=== PATIENT | male | born 1985 | race Caucasian/White ===

== ENCOUNTER → 2021-01-17 15:49 | Outpatient (CLI) | payer BC, OTHER, SELFPAY ==
--- NOTE | ~2021-01-17 | MR_ITS ---
EXAMINATION: MR knee RT wo con DATE: 01/17/2021 17:20 INDICATION: Right knee pain. TECHNIQUE: Magnetic resonance imaging (MRI) of the right knee was performed without intravenous contr ast. Sequences included axial PD-weighted FS FSE, coronal PD-weighted FSE and PD-weighted FS FSE, sag ittal PD-weighted FSE, and sagittal T2-weighted FS FSE. COMPARISON: Right knee radiographs 09/11/2013 FINDINGS: Sensitivity and specificity are mildly decreased by motion artifact. Medial compartment: Medial meniscus is normal. There is cartilage surface irregularity of tibial condyle and femoral cond yle. Lateral compartment: Lateral meniscus is normal. Lateral compartment cartilage is normal. Patellofemoral compartment: There is cartilage surface irregularity of patellar lateral facet. Trochlear cartilage is normal. Ligaments and tendons: The anterior and posterior cruciate ligaments are normal. Medial collateral ligament and lateral brown ateral ligament complex are intact. There is mild patellar tendinopathy. Fluid: There is no knee joint effusion. There is a small Sorto's cyst. IMPRESSION: 1. 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 2. Small Sorto's cyst. Reviewed, dictated and finalized at location B.
== END ==
PROVIDERS: Visit Provider Orthopaedic Surgery
DX: M71.21 Synovial cyst of popliteal space [Baker], right knee (principal)
CPT/HCPCS: 73721

== ENCOUNTER 2021-04-16 12:50 | Emergency (ER) | payer OTHER, SELFPAY ==
[2021-04-16 14:00] VITALS: BP 135/82; PULSE 78; RESP 16; TEMP 36.6; O2SAT 98
--- NOTE | 2021-04-16 14:20 | ED.SKABFB ---
HPI - Skin/Abscess/Foreign Bdy General Source: patient Mode of arrival: ambulatory Limitations: no limitations History of Present Illness HPI narrative: Patient comes in with an itchy very fine red to both antecubital areas. This has been ongoing for two days. itching has winston severe. He has had no relief from topical over the counter hydrocortisone. No other associated signs or symptoms. complaint: rash Onset (ago): day(s) Tetanus up to date: yes Severity: severe Quality: pruritic Relieving factors: none Exacerbating factors: movement Associated symptoms: denies other symptoms Treatments prior to arrival: OTC topical medication Related Data Allergies Allergy/AdvReac Type Severity Reaction Status Date / Time levofloxacin Allergy Unknown Verified 01/10/16 14:59 Review of Systems Constitutional: Constitutional: Reports no additional constitutional complaints Eyes: Eyes: Reports no additional eye complaints ENT: Reports system reviewed and no additional complaints, except as documented Cardiovascular: Cardiovascular: Reports no additional cardiovascular complaints Respiratory: Respiratory: Reports no additional respiratory complaints Gastrointestinal: Gastrointestinal: Reports no additional gastrointestinal complaints Genitourinary: Genitourinary: Reports no additional male genitourinary complaints Musculoskeletal: Musculoskeletal: Reports no additional musculoskeletal complaints Integumentary/Breasts: Skin/Breast: Reports system reviewed and no additional complaints, except as docu Neurologic: Reports system reviewed and no additional complaints, except as documented Psychiatric: Psychiatric: Reports no additional psychiatric complaints Endocrine: Endocrine: Reports no additional endocrine complaints Hematologic/Lymphatic: Hematologic/Lymphatic: Reports no additional hematologic/lymphatic complaints Allergic/Immunologic: Allergic/Immunologic: Reports no additional allergic/immunologic complaints [facility] Past Medical History Medical History No significant medical problems Surgical History Surgical History (Updated 04/16/21 @ 18:02 by Jeremías Priest MD) No significant past surgical history Family History Family History (Updated 04/16/21 @ 18:02 by Jeremías Priest MD) Mother Colon cancer Other Hypertension Social History Social History Smoking status: Former smoker Smoking end date: 09/30/12 Alcohol intake: never Substance use: never Living arrangements: with family Gender identity (if verbalized by the patient): Male Sexual Orientation (if Verbalized by the Patient): Straight or Heterosexual Course Vital Signs Vital signs: Vital Signs Temperature 36.6 C 04/16/21 14:00 Pulse Rate 78 04/16/21 14:00 Respiratory Rate 16 04/16/21 14:00 Blood Pressure 135/82 04/16/21 14:00 Pulse Oximetry 98 04/16/21 14:00 Temperature 36.6 C 04/16/21 14:00 Pulse Rate 71 04/16/21 14:34 Respiratory Rate 14 04/16/21 14:34 Blood Pressure 135/82 04/16/21 14:00 Pulse Oximetry 98 04/16/21 14:34 Discharge Plan Discharge Clinical Impression: Contact dermatitis Qualifiers: Contact dermatitis type: allergic Contact dermatitis trigger: unspecified trigger Qualified Code(s): L23.9 - Allergic contact dermatitis, unspecified cause Patient Disposition: Home, Self-Care Condition: Stable Instructions: Antibiotic Form, Contact Dermatitis (ED) Additional Instructions: Use benadryl 25 to 50 mg every 6 hours to help itching, as tolerated. Follow up with family doctor as needed Prescriptions: New triamcinolone acetonide 0.1 % ointment 1 applic topical BID Qty: 15 RF: 1 Follow-up/Referrals: Donavan,MD Romeo [Primary Care Provider] - Time of Disposition: 14:
[2021-04-16 14:34] VITALS: PULSE 71; RESP 14; O2SAT 98
[2021-04-16] MEDS: DEXAMETHASONE 4 MG TABLET 12 MG PO (14:35)
== END 2021-04-16 14:39 | disposition home or self-care (01) ==
PROVIDERS: Emergency Provider Emergency Medicine; PCP Internal Medicine
DX: L23.9 Allergic contact dermatitis, unspecified cause (principal)
CPT/HCPCS: 99283; J8540

== ENCOUNTER 2021-04-30 17:36 | Emergency (ER) | payer OTHER, SELFPAY ==
[2021-04-30 17:40] VITALS: BP 135/88; PULSE 97; RESP 14; TEMP 36.8; O2SAT 97
--- NOTE | 2021-04-30 17:46 | ED.SKABFB ---
HPI - Skin/Abscess/Foreign Bdy General Chief complaint: Skin/Abscess/Foreign Body Stated complaint: Rash on arms and stomach Source: patient and RN notes reviewed Mode of arrival: ambulatory Limitations: no limitations History of Present Illness complaint: rash Onset (ago): day(s) (2) Location: LUE and RUE Severity: mild Quality: burning and pruritic Pain Consistency: constant Relieving factors: none Exacerbating factors: none Context: other ( possible poison gayathri) Associated symptoms: denies other symptoms Treatments prior to arrival: corticosteroid Related Data Allergies Allergy/AdvReac Type Severity Reaction Status Date / Time levofloxacin Allergy Unknown Verified 01/10/16 14:59 Review of Systems Review of Systems: All systems reviewed & are unremarkable except as noted in HPI and below PMFSH Past Medical History Medical History No significant medical problems Surgical History Surgical History No significant past surgical history Family History Family History Mother Colon cancer Other Hypertension Social History Social History Smoking status: Former smoker Smoking end date: 09/30/12 Alcohol intake: never Substance use: never Gender identity (if verbalized by the patient): Male Exam Const: General: healthy appearing and no acute distress Nutritional Appearance: well nourished Orientation/consciousness: patient oriented x3 HENMT: Head: normal to inspection Ears: external ears normal Eyes: Conjunctivae: conjunctivae normal Pupils: Equal, round and reactive pupils present EOM: EOMs intact bilaterally Neck: Neck: normal visual inspection Resp: Effort & Inspection: normal respiratory effort Auscultation: clear to auscultation bilaterally Cardio: Rate: regular rate Rhythm: regular rhythm GI: Auscultation: normal bowel sounds Back/Spine/Pelvis: Cervical Spine: cervical ROM normal Thoracic/Lumbar Spine: thoraco-lumbar ROM normal Skin: Rashes: rashes noted (and left lower abd) bilateral forearm arrangement linear, color red and morphology linear Neuro: General: patient oriented x3, moves all extremities, no meningeal signs and no focal motor deficits Speech: normal speech Gait exam (Neuro): Normal gait present Extrem: General: normal to inspection and no clubbing, cyanosis or edema Psych: Appearance: grossly normal and well kempt Mental Status: mental status grossly normal Affect: normal affect Attitude: cooperative Thought content: Yes Normal thought content present Course Course Emergency Course: I explained the patient normal progression for poison gayathri. I will prescribe a stronger steroid cream but noted that oral steroids or injection of steroids are not indicated at this time. Vital Signs Vital signs: Vital Signs Temperature 36.8 C 04/30/21 17:40 Pulse Rate 97 04/30/21 17:40 Respiratory Rate 14 04/30/21 17:40 Blood Pressure 135/88 04/30/21 17:40 Pulse Oximetry 97 04/30/21 17:40 Temperature 36.8 C 04/30/21 17:40 Pulse Rate 97 04/30/21 17:40 Respiratory Rate 14 04/30/21 18:08 Blood Pressure 135/88 04/30/21 17:40 Pulse Oximetry 97 04/30/21 18:08 Discharge Plan Discharge Clinical Impression: Contact dermatitis Qualifiers: Contact dermatitis type: allergic Contact dermatitis trigger: non-food plants Qualified Code(s): L23.7 - Allergic contact dermatitis due to plants, except food Patient Disposition: Home, Self-Care Condition: Stable Instructions: Contact Dermatitis (ED) Prescriptions: New desoximetasone [Topicort] 0.25 % cream 1 applic topical BID 10 Days Qty: 60 RF: 0 Follow-up/Referrals: Donavan,MD Romeo [Primary Care Provider] - Time of Disposition: 18:03
[2021-04-30 18:08] VITALS: RESP 14; O2SAT 97
== END 2021-04-30 18:08 | disposition home or self-care (01) ==
PROVIDERS: Emergency Provider Emergency Medicine; PCP Internal Medicine
DX: L23.7 Allergic contact dermatitis due to plants, except food (principal)
CPT/HCPCS: 99283

== ENCOUNTER 2021-10-27 18:27 | Emergency (ER) | payer OTHER, SELFPAY ==
--- NOTE | 2021-10-27 18:44 | ED.GENADULT ---
HPI - General Adult General Chief complaint: Unspecified Stated complaint: nose bleed Time Seen by Provider: 10/27/21 18:44 Source: patient History of Present Illness HPI narrative: 36-year-old male with no significant past medical history presented to the ER with -- right nostril epistaxis. Bleeding started 30 minutes ago. patient felt sinus discomfort following which he blew his nose which started off his epistaxis. No prior episodes of epistaxis. No history of bleeding tendency. He has had dental extraction without any undue bleeding post procedure. No family history of bleeding disorders. MD complaint: 30 minutes ago Onset (ago): minute(s) Relieving factors: none Exacerbating factors: none Associated symptoms: denies other symptoms Related Data Home Medications Medication Instructions Recorded Confirmed No Home Medications 10/27/21 10/27/21 Allergies Allergy/AdvReac Type Severity Reaction Status Date / Time levofloxacin Allergy Unknown Verified 01/10/16 14:59 Review of Systems Review of Systems: All systems reviewed & are unremarkable except as noted in HPI and below Constitutional: Constitutional: Reports as per HPI and Reports no additional constitutional complaints Eyes: Eyes: Reports as per HPI and Reports no additional eye complaints ENT: Reports system reviewed and no additional complaints, except as documented Comments: right nostril epistaxis. No sinus tenderness. No mucopurulent discharge. Cardiovascular: Cardiovascular: Reports as per HPI and Reports no additional cardiovascular complaints Respiratory: Respiratory: Reports as per HPI and Reports no additional respiratory complaints Gastrointestinal: Gastrointestinal: Reports as per HPI and Reports no additional gastrointestinal complaints Genitourinary: Genitourinary: Reports no additional male genitourinary complaints and Reports as per HPI Musculoskeletal: Musculoskeletal: Reports no additional musculoskeletal complaints and Reports as per HPI Integumentary/Breasts: Skin/Breast: Reports system reviewed and no additional complaints, except as docu and Reports as per HPI Neurologic: Reports system reviewed and no additional complaints, except as documented and Reports as per HPI Psychiatric: Psychiatric: Reports no additional psychiatric complaints and Reports as per HPI Endocrine: Endocrine: Reports no additional endocrine complaints and Reports as per HPI Hematologic/Lymphatic: Hematologic/Lymphatic: Reports no additional hematologic/lymphatic complaints and Reports as per HPI Allergic/Immunologic: Allergic/Immunologic: Reports no additional allergic/immunologic complaints PMFSH Past Medical History Medical History No significant medical problems Surgical History Surgical History No significant past surgical history Family History Family History Mother Colon cancer Other Hypertension Social History Social History Smoking status: Former smoker Smoking end date: 09/30/12 Alcohol intake: never Substance use: never Gender identity (if verbalized by the patient): Male Sexual Orientation (if Verbalized by the Patient): Straight or Heterosexual Exam Const: General: cooperative, healthy appearing and comfortable HENMT: Head: normal to inspection Ears: hearing grossly normal bilaterally and external ears normal General nose exam: Normal external nose present Face and sinus: other ( Dried bloodright nostril. Questionable spot in the right septum- possibl) Mouth: Yes Normal oral and palatal mucosa present and Yes lip normal Throat: posterior oropharynx normal and tonsils normal Eyes: General: appearance normal, both eyes and all related structures Visual Valera: normal visual fie
[2021-10-27 18:47] VITALS: BP 134/70; PULSE 74; RESP 20; TEMP 37; O2SAT 99
[2021-10-27] MEDS: OXYMETAZOLINE HCL 0.05% NAS 15 ML BTL (*BKC) 1 SPRAY (18:51)
[2021-10-27 19:15] LABS: Basophils Absolute Auto 0.08 K/mm3 (0.00-0.10); Basophils Percent Auto 0.9 % (0.0-1.0); Eosinophils Absolute Auto 0.22 K/mm3 (0.02-0.50); Eosinophils Percent Auto 2.5 % (1.0-6.0); Hematocrit 40.3 % (40.0-54.0); Hemoglobin 13.7 g/dL (14.0-18.0); Immature Granulocyte Absolute 0.03 K/mm3 (0.00-0.00); Immature Granulocyte Percent A 0.3 % (0.0-0.0); Lymphocytes Absolute Auto 3.42 K/mm3 (1.10-4.50); Lymphocytes Percent Auto 39.5 % (18.0-42.0); Mean Corpuscular Hemoglobin 31.1 pg (27.0-31.0); Mean Corpuscular Volume 91.6 fL (78.0-102.0); Mean Platelet Volume 9.1 fl (8.7-11.0); Monocytes Absolute Auto 0.75 K/mm3 (0.10-0.90); Monocytes Percent Auto 8.7 % (2.0-11.0); Neutrophils Absolute Auto 4.2 K/mm3 (1.7-7.2); Neutrophils Percent Auto 48.1 % (50.0-70.0); Platelet Count Result 255 K/mm3 (150-420); Red Cell Distribution Width 11.8 % (11.6-14.4); White Blood Count 8.7 K/mm3 (4.8-10.8)
[2021-10-27 19:30] LABS: Partial Thromboplastin Time 30.4 SEC (23.90-30.70); Prothrombin Time 10.3 Seconds (9.50-12.10)
[2021-10-27 19:33] LABS: Alanine Aminotransferase 67 U/L (16-63); Albumin Level 4.1 g/dL (3.4-5.0); Alkaline Phosphatase 82 U/L (46-116); Anion Gap 9 mmol/L (8-16); Aspartate Amino Transferase 23 U/L (15-37); Bilirubin,Total 0.5 mg/dL (0.00-1.00); Blood Urea Nitrogen 16 mg/dL (7-18); Calcium 8.9 mg/dL (8.5-10.1); Carbon Dioxide 28 mmol/L (21-32); Chloride 101 mmol/L (98-108); Estimated CRCL calculation 91 ml/min; Estimated Glomerular Filt Rate > 60; Glucose 96 mg/dL (70-99); Osmolality Calculated 287 mOsm/kg (285-295); Potassium 3.8 mmol/L (3.5-5.1); Sodium 138 mmol/L (136-145); Total Protein 7.1 g/dL (6.4-8.2)
--- NOTE | 2021-10-27 19:47 | ED.GENADULT ---
HPI - General Adult General Chief complaint: Unspecified Stated complaint: nose bleed Time Seen by Provider: 10/27/21 18:44 Source: patient History of Present Illness Relieving factors: none Exacerbating factors: none Associated symptoms: denies other symptoms Related Data Home Medications Medication Instructions Recorded Confirmed No Home Medications 10/27/21 10/27/21 Allergies Allergy/AdvReac Type Severity Reaction Status Date / Time levofloxacin Allergy Unknown Verified 01/10/16 14:59 PMF Past Medical History Medical History No significant medical problems Surgical History Surgical History No significant past surgical history Family History Family History Mother Colon cancer Other Hypertension Social History Social History Smoking status: Former smoker Smoking end date: 09/30/12 Alcohol intake: never Substance use: never Gender identity (if verbalized by the patient): Male Sexual Orientation (if Verbalized by the Patient): Straight or Heterosexual Course Vital Signs Vital signs: Vital Signs Temperature 37.0 C 10/27/21 18:47 Pulse Rate 74 10/27/21 18:47 Respiratory Rate 20 10/27/21 18:47 Blood Pressure 134/70 10/27/21 18:47 Pulse Oximetry 99 10/27/21 18:47 Temperature 37.0 C 10/27/21 18:47 Pulse Rate 74 10/27/21 18:47 Respiratory Rate 20 10/27/21 18:47 Blood Pressure 134/70 10/27/21 18:47 Pulse Oximetry 99 10/27/21 18:47 Medical Decision Making MDM Narrative Medical decision making narrative: Epistaxis Differential Diagnosis Differential Diagnosis: sinusitis. Nasal polyps. Vital Signs Vital Signs: Vital Signs Temperature 37.0 C 10/27/21 18:47 Pulse Rate 74 10/27/21 18:47 Respiratory Rate 20 10/27/21 18:47 Blood Pressure 134/70 10/27/21 18:47 Pulse Oximetry 99 10/27/21 18:47 Temperature 37.0 C 10/27/21 18:47 Pulse Rate 74 10/27/21 18:47 Respiratory Rate 20 10/27/21 18:47 Blood Pressure 134/70 10/27/21 18:47 Pulse Oximetry 99 10/27/21 18:47 Lab Data Result diagrams: 10/27/21 19:07 10/27/21 19:07 Labs: Lab Results 10/27/21 10/27/21 10/27/21 Range/Units 19:07 19:07 19:07 WBC 8.7 (4.8-10.8) K/mm3 RBC 4.40 L (4.70-6.10) M/mm3 Hgb 13.7 L (14.0-18.0) g/dL Hct 40.3 (40.0-54.0) % MCV 91.6 (78.0-102.0) fL MCH 31.1 H (27.0-31.0) pg MCHC 34.0 (32.0-36.0) g/dL RDW 11.8 (11.6-14.4) % Plt Count 255 (150-420) K/mm3 MPV 9.1 (8.7-11.0) fl Immature Gran % (Auto) 0.3 H (0.0-0.0) % Neut % (Auto) 48.1 L (50.0-70.0) % Lymph % (Auto) 39.5 (18.0-42.0) % [place] % (Auto) 8.7 (2.0-11.0) % Eos % (Auto) 2.5 (1.0-6.0) % Baso % (Auto) 0.9 (0.0-1.0) % Lymph # (Auto) 3.42 (1.10-4.50) K/mm3 [place] # (Auto) 0.75 (0.10-0.90) K/mm3 Eos # (Auto) 0.22 (0.02-0.50) K/mm3 Baso # (Auto) 0.08 (0.00-0.10) K/mm3 Abs Immat Gran (auto) 0.03 H (0.00-0.00) K/mm3 Absolute Neuts (auto) 4.2 (1.7-7.2) K/mm3 Absolute Nucleated RBC 0.00 (0.00-0.00) K/mm3 Nucleated RBC % 0.0 (0-0.0) % PT 10.3 (9.50-12.10) Seconds INR 1.0 APTT 30.4 (23.90-30.70) SEC Sodium (136-145) mmol/L Potassium (3.5-5.1) mmol/L Chloride (98-108) mmol/L Carbon Dioxide (21-32) mmol/L Anion Gap (8-16) mmol/L BUN (7-18) mg/dL Creatinine (0.70-1.30) mg/dL Estim Creat Clear Calc ml/min Estimated GFR (59 - ) Glucose (70-99) mg/dL Calculated Osmolality (285-295) mOsm/kg Calcium (8.5-10.1) mg/dL Total Bilirubin (0.00-1.00) mg/dL AST (15-37) U/L ALT (16-63) U/L Alkaline Phosphatase (46-116) U/L Total Protein
[2021-10-27 20:18] VITALS: BP 120/70; PULSE 70; RESP 18; TEMP 36.6; O2SAT 99
== END 2021-10-27 20:19 | disposition home or self-care (01) ==
PROVIDERS: Emergency Provider Internal Medicine Critical Care Medicine; PCP Internal Medicine
DX: R04.0 Epistaxis (principal)
CPT/HCPCS: 36415; 80053; 85025; 85610; 85730; 99282; 99283; A9270

== ENCOUNTER 2022-08-26 08:07 | Emergency (ER) | payer SELFPAY ==
[2022-08-26 08:14] VITALS: BP 115/62; PULSE 98; RESP 16; TEMP 37.7; O2SAT 95
[2022-08-26 08:37] LABS: Add Urine Microscopic? NO; Appearance Urine Clear (Clear); Bilirubin Urine Negative (Negative); Blood Urine Negative (Negative); Color Urine Yellow (Yellow); Glucose Urine UA Negative (Negative); Ketones Urine Negative (Negative); Leukocyte Esterase Ur Negative LEU/UL (Negative); Nitrate Urine Negative (Negative); Protein Urine Negative (Negative); Specific Grav Ur >= 1.030 (1.010-1.020); Urobilinogen Urine 0.2 mg/dL (0.2-1.0)
--- NOTE | 2022-08-26 08:39 | ED.URI ---
HPI - URI/Sore Throat General Chief Complaint: Upper Respiratory Infection Stated Complaint: fever, body aches, kidney pain Time Seen by Provider: 08/26/22 08:30 Source: patient and RN notes reviewed Mode of arrival: ambulatory Limitations: no limitations History of Present Illness MD elicited complaint: fever and cough Onset (ago): day(s) (1) Consistency: constant Severity: moderate Description of mucous: clear Able to tolerate fluids by mouth: Yes Exacerbating factors: nothing Relieving factors: nothing Context: sick contacts Associated symptoms: chills, myalgias, headache and other ( also complains of right flank pain.) Treatments prior to arrival: none Related Data Allergies Allergy/AdvReac Type Severity Reaction Status Date / Time levofloxacin Allergy Unknown itch Verified 08/26/22 08:20 Review of Systems Review of Systems: All systems reviewed & are unremarkable except as noted in HPI and below PMFSH Past Medical History Medical History Angiolipoma No significant medical problems Surgical History Surgical History (Updated 08/26/22 @ 08:45 by Jeremías Francisco MD) History of appendectomy Family History Family History Mother Colon cancer Other Hypertension Social History Social History Smoking status: Former smoker Smoking end date: 09/30/12 Alcohol intake: never Substance use: never Gender identity (if verbalized by the patient): Male Sexual Orientation (if Verbalized by the Patient): Straight or Heterosexual Exam Const: General: no acute distress, alert and ill appearing acutely Nutritional Appearance: well nourished and obese Orientation/consciousness: patient oriented x3 Limitations: no limitations HENMT: Head: normal to inspection Ears: external ears normal Eyes: Conjunctivae: conjunctivae normal Pupils: Equal, round and reactive pupils present EOM: EOMs intact bilaterally Neck: Neck: normal visual inspection Resp: Effort & Inspection: normal respiratory effort Auscultation: clear to auscultation bilaterally Cardio: Rate: regular rate Rhythm: regular rhythm GI: GI Palp: Yes Soft to palpation and No Tenderness to palpation present (GI) Auscultation: normal bowel sounds Back/Spine/Pelvis: Back: CVA tenderness (mild right) Cervical Spine: cervical ROM normal Thoracic/Lumbar Spine: thoraco-lumbar ROM normal Skin: General skin exam: normal color Rashes: no rashes Wounds: no wounds Neuro: General: patient oriented x3 Speech: normal speech Gait exam (Neuro): Normal gait present Course Vital Signs Vital signs: Vital Signs Temperature 37.7 C H 08/26/22 08:14 Pulse Rate 98 08/26/22 08:14 Respiratory Rate 16 08/26/22 08:14 Blood Pressure 115/62 08/26/22 08:14 Pulse Oximetry 95 08/26/22 08:14 Oxygen Delivery Room Air 08/26/22 08:14 Temperature 37.7 C H 08/26/22 09:24 Pulse Rate 88 08/26/22 09:24 Respiratory Rate 17 08/26/22 09:24 Blood Pressure 116/62 08/26/22 09:24 Pulse Oximetry 98 08/26/22 09:24 Oxygen Delivery Room Air 08/26/22 09:24 MDM - URI/Sore Throat Lab Data Attestation: I reviewed the patient's lab results. Labs: Lab Results 08/26/22 08/26/22 Range/Units 08:23 08:24 Urine Color Yellow (Yellow) Urine Appearance Clear (Clear) Urine pH 6.0 (5.0-8.0) Ur Specific [place] >= 1.030 H (1.010-1.020) Urine Protein Negative (Negative) Urine Glucose (UA) Negative (Negative) Urine Ketones Negative (Negative) Ur Blood (Man) Negative (Negative) Urine Nitrate Negative (Negative) Urine Bilirubin Negative (Negative) Urine Urobilinogen 0.2 (0.2-1.0) mg/dL Leukocyte Esterase Rfl Negative (Negative) MARIN/UL Influenza A (RT-PCR) Positive (Negative) Influenza B (RT-PCR) Negative (Negative)
[2022-08-26 09:10] LABS: Influenza A QL RT-PCR Positive (Negative); Influenza B QL RT-PCR Negative (Negative); SARS-CoV-2 RNA PCR Negative (Negative)
[2022-08-26 09:19] LABS: RSV RNA, RT-PCR Negative (Negative)
[2022-08-26 09:24] VITALS: BP 116/62; PULSE 88; RESP 17; TEMP 37.7; O2SAT 98
== END 2022-08-26 09:41 | disposition home or self-care (01) ==
PROVIDERS: Emergency Provider Emergency Medicine
DX: J11.1 Influenza due to unidentified influenza virus with other respiratory manifestations (principal); Z20.822 Contact with and (suspected) exposure to COVID-19; Z87.891 Personal history of nicotine dependence
CPT/HCPCS: 81003; 87637; 99283

== ENCOUNTER 2023-01-04 03:24 | Emergency (ER) | payer SELFPAY ==
[2023-01-04 03:27] VITALS: BP 126/78; PULSE 95; RESP 18; TEMP 36.7; O2SAT 97
[2023-01-04 04:13] LABS: Strep Group A RT-PCR DETECTED (Negative)
[2023-01-04 04:19] LABS: Influenza A QL RT-PCR Negative (Negative); Influenza B QL RT-PCR Negative (Negative); RSV RNA, RT-PCR Negative (Negative); SARS-CoV-2 RNA PCR Negative (Negative)
--- NOTE | 2023-01-04 04:31 | ED.FEVER ---
HPI - Fever General Chief Complaint: Fever Stated Complaint: fever Time Seen by Provider: 01/04/23 03:35 Source: patient Mode of arrival: ambulatory Limitations: no limitations History of Present Illness HPI Narrative: This is a 37-year-old female that presents with a 1 day history of sore throat with a tender left submandibular gland with some low-grade fever and chills with no shortness of breath no nasal discharge no nausea vomiting no abdominal pain. MD elicited complaint: fever Related Data Allergies Allergy/AdvReac Type Severity Reaction Status Date / Time levofloxacin Allergy Unknown itch Verified 01/04/23 03:33 Review of Systems Review of Systems: All systems reviewed & are unremarkable except as noted in HPI and below PMFSH Past Medical History Medical History Angiolipoma No significant medical problems Surgical History Surgical History History of appendectomy Family History Family History Mother Colon cancer Other Hypertension Social History Social History Smoking status: Former smoker Smoking end date: 09/30/12 Alcohol intake: never Substance use: never Living arrangements: with family Gender identity (if verbalized by the patient): Male Sexual Orientation (if Verbalized by the Patient): Straight or Heterosexual Exam Const: General: healthy appearing Nutritional Appearance: well nourished Orientation/consciousness: patient oriented x3 Limitations: no limitations HENMT: Head: normal to inspection Face and sinus: normal facial exam Mouth: Yes Normal oral and palatal mucosa present Eyes: Conjunctivae: conjunctivae normal Neck: Neck: lymphadenopathy Chest: Chest palpation & inspection: normal inspection of the chest Resp: Effort & Inspection: normal respiratory effort Auscultation: clear to auscultation bilaterally Cardio: Rate: regular rate Rhythm: regular rhythm GI: GI Palp: Yes Soft to palpation Skin: General skin exam: normal color Rashes: no rashes Wounds: no wounds Neuro: General: patient oriented x3 Psych: Appearance: grossly normal Mental Status: mental status grossly normal Course OPERATOR MAINTAINER/PA Physician Supervision Patient diagnosed with strep, currently afebrile and will give him a dose of amoxicillin and sent a prescription antibiotics to his local pharmacy. Vital Signs Vital signs: Vital Signs Temperature 36.7 C 01/04/23 03:27 Pulse Rate 95 01/04/23 03:27 Respiratory Rate 18 01/04/23 03:27 Blood Pressure 126/78 01/04/23 03:27 Pulse Oximetry 97 01/04/23 03:27 Oxygen Delivery Room Air 01/04/23 03:27 Temperature 36.7 C 01/04/23 03:27 Pulse Rate 95 01/04/23 03:27 Respiratory Rate 18 01/04/23 03:27 Blood Pressure 126/78 01/04/23 03:27 Pulse Oximetry 97 01/04/23 03:27 Oxygen Delivery Room Air 01/04/23 03:27 MDM - Fever Lab Data Labs: Lab Results 01/04/23 01/04/23 Range/Units 03:37 03:37 Influenza A (RT-PCR) Negative (Negative) Influenza B (RT-PCR) Negative (Negative) RSV (RT-PCR) Negative (Negative) SARS-CoV-2 RNA (RT-PCR) Negative (Negative) Group A Strep (PCR) Detected A (Negative) Critical Care Time Critical Care Time Critical Care Time: No Discharge Plan Discharge Clinical Impression: Strep sore throat Patient Disposition: Home, Self-Care Condition: Stable Instructions: Antibiotic Form, Strep Throat (ED) Additional Instructions: take medicine as prescribed and follow-up with primary care physician if symptoms persist or worsen. Can use Tylenol or Motrin for sore throat symptoms and fever. Prescriptions: New amoxicillin-pot clavulanate [Augmentin] 500-125 mg tablet 1 tablet PO TID Qty: 20 0RF Follow-up/R
[2023-01-04] MEDS: AMOXICILLIN 500 MG CAPSULE PO (04:35)
[2023-01-04 04:44] VITALS: BP 122/75; PULSE 72; RESP 18; TEMP 36.4; O2SAT 97
== END 2023-01-04 04:45 | disposition home or self-care (01) ==
PROVIDERS: Emergency Provider Emergency Medicine; PCP Internal Medicine
DX: J02.0 Streptococcal pharyngitis (principal); Z87.891 Personal history of nicotine dependence; Z20.822 Contact with and (suspected) exposure to COVID-19
CPT/HCPCS: 87637; 87651; 99283; A9270

== ENCOUNTER 2024-06-29 14:02 | Outpatient (CLI) | payer BC, SELFPAY ==
--- NOTE | ~2024-06-29 | XR_ITS ---
Cervical Spine: AP, lateral, open-mouth views Clinical History: Pain Findings: There is mild reversal of the normal cervical lordosis. There is 2 mm retrolisthesis of C3 over C4. There is mild degenerative change at C3-C4 and C5-C6. There is facet arthropathy at C3-C4.. Pre-vertebral soft tissues are unremarkable. Impression: Mild degenerative spondylosis overall, as detailed above. Mild reversal of the normal cervical lordosis, with 2 mm retrolisthesis of C3 over C4. Reviewed, dictated and finalized at [facility]. Impression: Mild degenerative spondylosis overall, as detailed above. Mild reversal of the normal cervical lordosis, with 2 mm retrolisthesis of C3 o ramirez C4.
[2024-06-29 14:39] LABS: Add Urine Microscopic? NO; Appearance Urine Clear (Clear); Bilirubin Urine Negative (Negative); Blood Urine Negative (Negative); Color Urine Light Yellow (Yellow); Glucose Urine UA Negative (Negative); Ketones Urine Negative (Negative); Leukocyte Esterase Ur Negative (Negative); Nitrate Urine Negative (Negative); Protein Urine Negative (Negative); Urobilinogen Urine 0.2 mg/dL (0.2-1.0)
[2024-06-29 15:09] LABS: Alanine Aminotransferase 58 U/L (16-63); Albumin Level 4.1 g/dL (3.4-5.0); Alkaline Phosphatase 84 U/L (46-116); Anion Gap 7 mmol/L (4-12); Aspartate Amino Transferase 27 U/L (15-37); Bilirubin,Total 0.5 mg/dL (0.00-1.00); Blood Urea Nitrogen 8 mg/dL (7-18); CRP < 0.5 mg/dL (0.0-0.9); Carbon Dioxide 29 mmol/L (21-32); Chloride 102 mmol/L (98-108); Estimated Glomerular Filt Rate > 60; Free T3 3.38 pg/mL (2.18-3.98); Free T4 Free Thyroxine 0.69 ng/dL (0.76-1.46); Glucose 80 mg/dL (70-99); Osmolality Calculated 283 mOsm/kg (285-295); Sodium 138 mmol/L (136-145); Thyroid Stimulating Hormone 2.03 uIU/mL (0.36-3.74); Total Protein 7.1 g/dL (6.4-8.2)
[2024-06-29 17:46] LABS: Hematocrit 44.5 % (40.0-54.0); Hemoglobin 14.9 g/dL (14.0-18.0); Mean Corpuscular HGB Conc 33.5 g/dL (32-36); Mean Corpuscular Hemoglobin 31.2 pg (27.0-31.0); Mean Corpuscular Volume 93.3 fL (78.0-102.0); Mean Platelet Volume 10.1 fl (8.7-11.0); Platelet Count Result 296 K/mm3 (150-420); Red Blood Count 4.77 M/mm3 (4.70-6.10); Red Cell Distribution Width 12.3 % (11.6-14.4)
[2024-06-30 15:04] LABS: Anti Cyclic Citrullinated Pept <16 UNITS
[2024-07-03 03:28] LABS: Myeloperoxidase Ab <1.0 AI (<1.0); Proteinase-3 Ab <1.0 AI (<1.0)
[2024-07-03 03:43] LABS: Tissue Transglutaminase IgA Ab <1.0 U/mL; Tissue Transglutaminase IgG Ab <1.0 U/mL
[2024-07-03 21:23] LABS: S cerevisiae Ab (IgA) 18.2 U (<=20.0); S cerevisiae Ab (IgG) 13.1 U (<=20.0)
[2024-07-07 20:53] LABS: ANCA Screen Negative (Negative)
== END 2024-06-29 14:03 | disposition home or self-care (01) ==
PROVIDERS: PCP Internal Medicine; Visit Provider Internal Medicine
DX: R42 Dizziness and giddiness (principal); R20.0 Anesthesia of skin; M25.50 Pain in unspecified joint; R19.7 Diarrhea, unspecified; M43.02 Spondylolysis, cervical region; M53.82 Other specified dorsopathies, cervical region
CPT/HCPCS: 36415; 72040; 80053; 81003; 83516; 84439; 84443; 84481; 85027; 86036; 86140; 86200; 86671

== ENCOUNTER 2024-07-11 06:52 | Outpatient (CLI) | payer BC, SELFPAY ==
--- NOTE | ~2024-07-11 | MR_ITS ---
EXAMINATION: MR cervical spine wo con DATE: 07/11/2024 07:35 INDICATION: Cervical radiculopathy. Bilateral hand tingling. TECHNIQUE: Magnetic resonance imaging (MRI) of the cervical spine was performed without intravenous c ontrast. Sequences included sagittal T2-weighted FSE, sagittal T2-weighted FS FSE, sagittal T1-weight ed FSE, axial MERGE, and axial T2-weighted FSE. COMPARISON: Cervical spine radiographs 06/29/2024 FINDINGS: There is 3 degrees levocurvature of cervical spine. There is kyphosis of cervical spine. Th ere is 2 mm retrolisthesis of C3 on C4. Vertebral body heights are normal. There is mildly decreased disc height at C3-C4 and C5-C6. The spinal cord signal intensity is normal. The following disc levels are specifically discussed: C2-C3: There is a central extrusion. There is no uncovertebral joint osteoarthritis. There is mild bi lateral facet joint osteoarthritis. There is no neural foraminal stenosis. There is mild central dwayne l stenosis with ventral indentation of the spinal cord. C3-C4: There is a central extrusion. There is severe bilateral uncovertebral joint osteoarthritis. Th ere is mild right and moderate left facet joint osteoarthritis. There is moderate bilateral neural fo raminal stenosis. There is mild central canal stenosis. C4-C5: The disc does not extend beyond the endplate margin. There is no uncovertebral joint osteoarth ritis. There is moderate right and mild left facet joint osteoarthritis. There is no neural foraminal stenosis. There is no central canal stenosis. C5-C6: The disc is bulging. There is mild bilateral uncovertebral joint osteoarthritis. There is mild bilateral facet joint osteoarthritis. There is no neural foraminal stenosis. There is mild central c anal stenosis with ventral indentation of the spinal cord. C6-C7: There is a central protrusion. There is mild bilateral uncovertebral joint osteoarthritis. The re is no facet joint osteoarthritis. There is no neural foraminal stenosis. There is mild central can al stenosis. C7-T1: The disc does not extend beyond the endplate margin. There is no uncovertebral joint osteoarth ritis. There is severe bilateral facet joint osteoarthritis. There is mild bilateral neural foraminal stenosis. There is no central canal stenosis. IMPRESSION: 1. Moderate cervical spondylosis. Reviewed, dictated and finalized at location A.
== END 2024-07-11 06:53 | disposition home or self-care (01) ==
LOC: CHSIMG 06:54
PROVIDERS: PCP Internal Medicine; Visit Provider Internal Medicine
DX: M54.12 Radiculopathy, cervical region (principal); M43.02 Spondylolysis, cervical region
CPT/HCPCS: 72141

== ENCOUNTER 2024-08-10 16:24 | Outpatient (RCR) | payer BC, SELFPAY ==
--- NOTE | 2024-08-10 17:27 | PTOPEVAL1 ---
Assessment and note entered by Liu Steen Evaluation Information ICD-10 Condition Codes (PT) Cervicalgia M54.2 Subjective Information Pt. reports that he has developed numbness in the hands but is unsure as to when it started. he states that he has nerve conduction test scheduled and has done an MRI study. He states that the MRI revealed arthritis in the neck. He states that his neck has always been stiff, but does not have a lot of pain. He reports that pain in the neck is not his concern and he is more concerned about the constant numbness. He states that he is having trouble sleeping due to numbness. He states that any activity above his head will also increase the numbness in his hands. 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 He states that his goal is to reduce the numbness in his hands. Reported Pain Level Pain Score 5,2: Self Report Assessment PT Clinical Summary Pt. is a 39 year old male who enters the clinic due to cervical radiculopathy. Pt. cannot fully rule out possible carpal and cubital tunnel this date as well. He presents with impaired cervical mobility, impaired postural awareness and pain on this date resulting in functional decline. Continued skilled PT is indicated in order to improve these areas to allow the pt. to be able to complete all IADL's with improved comfort and efficiency. Plan of Care Interventions Electrical Stimulation,Hot Pack/Cold Pack,Manual Therapy,Mechanical Traction,Neuro Re-education, Patient/Caregiver Educati,Therapeutic Activities, Therapeutic Exercise PT Services Indicated Yes Treatment Frequency and 2x/week x 6 visits Duration These treatments will address the objective and functional deficits as defined above. The patient will be advanced safely and appropriately in order for the patient to progress towards his/her prior level of function. Additional exercises will be introduced and as well as a comprehensive home exercise program upon discharge, if needed, ?to ensure carryover of functional gains achieved in the clinic. This treatment plan has been reviewed and agreement upon by the patient.
--- NOTE | 2024-08-10 17:28 | OPREHPOC ---
Outpatient Therapy Plan of Care This is a Multidisciplinary Plan of Care that may contain components documented by all disciplines (PT, OT, and ST.) PT Problem 1 PT Problem #1 Knowledge Deficit PT Goal 1 Goal / Goal Update Pt. will be independent with a HEP addressing postural awareness Target Visit 2 PT Problem 2 PT Problem #2 Impaired Range of Motion PT Goal 1 Goal / Goal Update Pt. will present with 85 degrees bilateral c-spine rotation active ROM Target Visit 6 PT Problem 3 PT Problem #3 Pain PT Goal 1 Goal / Goal Update Pt will report reduction in numbness and tingling at the hands by 75% in regards to frequency and intensity. Target Visit 6
--- NOTE | 2024-09-03 08:46 | PTOPREEVAL ---
Assessment and note entered by JT File, PT Evaluation Information Assessment Status Re-evaluation ICD-10 Condition Codes (PT) Cervicalgia M54.2 Subjective Information Pt. reports that his neck pain is better. He states that pain is less intense. He reports that he still has numbness in the hands however that is also less intense. He reports that he is progressing and feels pain is 50% reduced. Assessment PT Clinical Summary Pt. has demonstrated excellent progress through 6 sessions. Treatment has currently focused on pain reduction, postural awareness, cervical ROM. Recommend continued skilled PT in order to continue to improve proximal u.e. strength and posture to allow for improved comfort with IADLs. Pt. would benefit from home traction unit given his response to use of mechanical traction in the clinic and his pain reduction. Plan of Care Interventions Hot Pack/Cold Pack,Manual Therapy,Mechanical Traction,Neuro Re-education,Therapeutic Activities ,Therapeutic Exercise PT Services Indicated Yes Treatment Frequency and 1x/week x 3 visits Duration These treatments will address the objective and functional deficits as defined above. The patient will be advanced safely and appropriately in order for the patient to progress towards his/her prior level of function. Additional exercises will be introduced and as well as a comprehensive home exercise program upon discharge, if needed, ?to ensure carryover of functional gains achieved in the clinic. This treatment plan has been reviewed and agreement upon by the patient.
--- NOTE | 2024-09-24 10:28 | OPREHPOC ---
Outpatient Therapy Plan of Care This is a Multidisciplinary Plan of Care that may contain components documented by all disciplines (PT, OT, and ST.) PT Problem 1 PT Problem #1 Knowledge Deficit PT Goal 1 Goal / Goal Update Pt. will be independent with a HEP addressing postural awareness Target Visit 2 Progress Met PT Problem 2 PT Problem #2 Impaired Range of Motion PT Goal 1 Goal / Goal Update Pt. will present with 85 degrees bilateral c-spine rotation active ROM Target Visit 6 Progress Not Met PT Problem 3 PT Problem #3 Pain PT Goal 1 Goal / Goal Update Pt will report reduction in numbness and tingling at the hands by 75% in regards to frequency and intensity. Target Visit 6 Progress Not Met
--- NOTE | 2024-09-24 10:28 | PTOPDC ---
Assessment and note entered by JT File, PT Evaluation Information Assessment Status Discharge ICD-10 Condition Codes (PT) Cervicalgia M54.2 Subjective Information patient reports he has no pain today, but does have some soreness at times. he reports he only gets numbness and issues with the hands when he is laying in bed using his phone, or with his arms over his head. he reports he gets numbness throughout the entire hands. he reports he is scheduled for a nerve conduction test next week. Reported Pain Level Pain Score 0,0: Self Report Assessment PT Clinical Summary mr. mcintosh presents to skilled PT services for his 9th skilled PT visit. he continues to have symptoms into the bilateral hands that increases with activities. he is compliant with his HEP, but has met no other goals for skilled PT. at this time, he will DC skilled PT to return to MD for follow up following his nerve conduction test. he will likely need referral to specialist regarding potential carpal tunnel surgery. Plan of Care PT Services Indicated Yes
== END 2024-09-24 10:45 | disposition home or self-care (01) ==
LOC: CHSPT 16:24
PROVIDERS: PCP Internal Medicine; Visit Provider Internal Medicine
DX: M47.812 Spondylosis without myelopathy or radiculopathy, cervical region (principal)
CPT/HCPCS: 97012; 97110; 97140; 97161

== ENCOUNTER 2024-08-12 19:26 | Emergency (ER) | payer BC, SELFPAY ==
[2024-08-12] VITALS (19 sets, daily range): BP systolic 121–140; BP diastolic 72–90; PULSE 60–78; RESP 13–20; TEMP 36.3; O2SAT 90–99
--- NOTE | ~2024-08-12 | XR_ITS ---
CHEST RADIOGRAPH CLINICAL HISTORY: chest pain . COMPARISON: None available TECHNIQUE: Single portable view of the chest. FINDINGS The cardiomediastinal silhouette is unremarkable. The lungs are clear. Visualized osseous structures and soft tissues are unremarkable. IMPRESSION: No focal infiltrate or effusion. Reviewed, dictated and finalized at location A. L APPLICATION REVIEWER
--- NOTE | ~2024-08-12 | CT_ITS ---
EXAMINATION: CTA chest abdomen pelvis DATE: 08/12/2024 21:33 BOW REHAIRER INDICATION: Chest pain radiating to the back, between the scapula COMPARISON: Reference is made to a noncontrast enhanced CT examination of the abdomen and pelvis date d 10/04/2009. TECHNIQUE: Computed tomographic angiography (CTA) of the chest was performed, along with multiple con tiguous axial images of the abdomen and pelvis with 100 mL Omnipaque-350 intravenous contrast. The do se-length product was 2393.00 mGy-cm. Maximum intensity projection 3D-reconstructions of the aorta an d other arteries were constructed by the technologist on a separate workstation. FINDINGS/OBSERVATIONS: PULMONARY ARTERIES: No filling defect is identified within the main or proximal pulmonary artery. The main pulmonary artery is not enlarged. THORACIC AORTA: No aneurysmal dilatation or dissection is present. The great vessels are intact LUNGS: A single nodule is identified within the right middle lobe (axial series, image 90) measuring 7.6 x 8.8 mm. This is a new finding from the 2009 examination for which follow-up as per Edgar mcgill is recommended. MEDIASTINUM: No morphologically suspicious or pathologically enlarged lymph nodes are identified with in the mediastinum or bilateral axilla. BONES OF THE CHEST: No acute fracture. No significant degenerative disease. No lytic or blastic lesions. HEART: The heart is of normal size, without pericardial effusion. LIVER: The liver enhances homogeneously and is enlarged measuring 20 cm in longitudinal dimension. GALLBLADDER AND BILIARY SYSTEM: The gallbladder is only minimally distended, and otherwise unremarkable. PANCREAS: The pancreas enhances homogeneously without ductal dilatation. SPLEEN: The spleen enhances homogeneously and is not enlarged measuring 8 cm in longitudinal dimension. KIDNEYS: The bilateral kidneys enhance symmetrically without hydronephrosis or renal calculi. ADRENAL GLANDS: Unremarkable. GASTROINTESTINAL TRACT: Colonic diverticulosis without surrounding inflammatory change. APPENDIX: Surgically absent. VASCULATURE: Unremarkable. No aneurysmal dilatation or dissection. LYMPH NODES: No pathologically enlarged or morphologically suspicious lymph nodes within the retroperitoneum or at the root of the mesentery. PELVIC STRUCTURES: The bladder is only minimally distended, and otherwise unremarkable. The prostate gland is not enlarged. BODY WALL AND MUSCULOSKELETAL: No significant degenerative disease within the lower thoracic or lumbosacral spine. IMPRESSION: No pulmonary embolus. No aortic dissection. Right middle lobe pulmonary nodule measuring 8.8 mm in greatest dimension for which CT at 3 months is recommended versus PET/CT or biopsy. Hepatomegaly. Reviewed, dictated and finalized at location A. REHAIRER IMPRESSION: No pulmonary embolus. No aortic dissection. Right middle lobe pulmonary nodule measuring 8.8 mm in greatest dimension for [facility] CT at 3 months is recommended versus PET/CT or biopsy. Hepatomegaly.
--- NOTE | 2024-08-12 19:30 | ECG_ITS ---
Test Date: 2024-08-12 19:32:14 Measurements Intervals [place] Rate: 69 P: 30 ME: 193 QRS: 62 QRSD: 98 T: 32 QT: 352 QTc: 379 Interpretive Statements SINUS RHYTHM BASELINE ARTIFACT- I, II, III, AVR, AVL, AVF, V1-V3 NORMAL ECG No previous ECG available for comparison Electronically Signed On 08-13-2024 05:35:21 PIPING SUPERVISOR by Jack Alaniz D.O.
--- NOTE | 2024-08-12 19:33 | ED_ITS ---
HPI - Chest Pain General Chief Complaint: Chest Pain Stated Complaint: chest pain Time Seen by Provider: 08/12/24 19:32 Source: patient Mode of arrival: ambulatory Limitations: no limitations History of Present Illness HPI narrative: 39-year-old male with a history of smoking presents to the ED 1 history of -- unprovoked substernal chest pain which radiates to the right shoulder and radiates into the interscapular region. Pain was initially noted to be 6/10. No nausea/ vomiting. No lightheadedness. No shortness of breath. -- Initially patient had numbness and tingling of both hands / fingers. Currently his substernal chest pain has decreased and it is at 3/10. MD complaint: chest pain Onset (ago): hour(s) ( 1 hour ago) Timing of current episode: constant Prior episodes: No Onset: during rest Pain location: substernal Pain radiation: right shoulder and other ( interscapular) Severity: moderate Pain scale (0-10): 6 Quality: aching Risk Factors Coronary artery disease risk factors: smoking history Related Data Home Medications Medication Instructions Recorded Confirmed testosterone cypionate 200 mg/mL 200 mg IM WEEKLY 08/12/24 08/12/24 intramuscular oil Allergies Allergy/AdvReac Type Severity Reaction Status Date / Time levofloxacin Allergy Unknown itch Verified 08/12/24 19:38 Review of Systems Review of Systems: All systems reviewed & are unremarkable except as noted in HPI and below Constitutional: Constitutional: Reports as per HPI and Reports no additional c onstitutional complaints Eyes: Eyes: Reports as per HPI and Reports no additional eye complaints ENT: Reports system reviewed and no additional complaints, except as documented and Reports as per HPI Cardiovascular: Cardiovascular: Reports as per HPI, Reports no additional cardiovascular complaints and Reports chest pain Respiratory: Respiratory: Reports as per HPI and Reports no additional respiratory complaints Gastrointestinal: Gastrointestinal: Reports as per HPI and Reports no additional gastrointestinal complaints Genitourinary: Genitourinary: Reports no additional male genitourinary com plaints and Reports as per HPI Musculoskeletal: Musculoskeletal: Reports no additional musculoskeletal complaints and Reports as per HPI Integumentary/Breasts: Skin/Breast: Reports system reviewed and no additional complaints, except as docu Neurologic: Reports system reviewed and no additional complaints, except as documented and Reports as per HPI Psychiatric: Psychiatric: Reports no additional psychiatric complaints and Reports as per HPI Endocrine: Endocrine: Reports no additional endocrine complaints and Reports as per HPI Hematologic/Lymphatic: Hematologic/Lymphatic: Reports no additional hematologic/lymphatic complaints and Reports as per HPI Allergic/Immunologic: Allergic/Immunologic: Reports no additional allergic/immunologic complaints and Reports as per HPI [facility] Past Medical History Medical History Angiolipoma No significant medical problems Surgical History Surgical History History of appendectomy Family History Family History Mother Colon cancer Other Hypertension Social History Social History Smoking status: Former smoker Smoking end date: 09/30/12 Alcohol intake: never Substance use: never Living arrangements: with family Gender identity (if verbalized by the patient): Male Sexual Orientation (if Verbalized by the Patient): Straight or Heterosexual Exam Narrative: blood pressure is stable. Oxygen saturation of 96% on room air Const: General: no acute distress Nutritional Appearance: well nourished Orientation/consciousness: patient oriented x3 Limitations: no limitations HENMT: Head: normal to inspection Ears: external ears normal Face/Nose/Sinus: Normal external nose present Face and sinus: normal facial exam Mouth: Yes Normal oral and palatal mucosa present Throat: posterior oropharynx normal Eyes: Conjunctivae: conjunctivae normal Pupils: Equal, round and reactive pupils present EOM: EOMs intact bilaterally Direct Ophthalmoscopy: no photophobia Neck: Neck: normal visual inspection, no lymphadenopathy and no meningeal signs Chest: Chest palpation & inspection: normal inspection of the chest Resp: Effort & Inspection: normal respiratory effort Auscultation: clear to auscultation bilaterally Cardio: Rate: regular rate Rhythm: regular rhythm GI: GI Palp: Yes Soft to palpation Auscultation: normal bowel sounds Rectal Exam: normal sphincter tone : General: Yes no CVA tenderness Male General Exam: Yes normal external exam Penis: Yes normal penis Scrotum: scrotum normal Testes: Testes normal Back/Spine/Pelvis: Back: no CVA tenderness Cervical Spine: collar present Skin: General skin exam: normal color Rashes: no rashes Neuro: General: patient oriented x3, moves all extremities, no meningeal signs, no focal motor deficits and CN's II-XI intact bilaterally Cranial nerves: Yes Nystagmus not present Speech: normal speech Gait exam (Neuro): Normal gait present Extrem: General: normal to inspection and no clubbing, cyanosis or edema Psych: Mental Status: mental status grossly normal Affect: normal affect Course Course Emergency Course: substernal chest pain radiating to the interscapular region. Patient had an EKG which did not show any acute findings. The patient had 2 troponins which were normal. The patient had an elevated D-dimer and pain radiating to the interscapular region for which she went on to have a CTA of the chest/abdomen / pelvis which did not show any evidence of PE or dissection. Right middle lobe pulmonary nodule Vital Signs Vital signs: Vital Signs Pulse Rate 78 08/12/24 19:26 Oxygen Delivery Room Air 08/12/24 19:26 Temperature 36.3 C L 08/12/24 19:27 Pulse Rate 67 08/12/24 20:16 Respiratory Rate 15 08/12/24 19:33 Blood Pressure 140/72 08/12/24 20:16 Pulse Oximetry 96 08/12/24 20:16 Oxygen Delivery Room Air 08/12/24 19:27 MDM - Chest Pain MDM Narrative Medical decision making narrative: chest pain pulmonary nodule hepatomegaly Differential Diagnosis Differential diagnosis: Likely pneumothorax, unstable angina pectoris and st elevation myocardial infarction Medical Records Data Attestation: I reviewed the patient's medical records. Lab Data Attestation: I reviewed the patient's lab results. 08/12/24 19:31 08/12/24 19:31 Labs: Lab Results 08/12/24 08/12/24 Range/Units 19:31 21:38 WBC 11.0 H (4.8-10.8) K/mm3 RBC 5.48 (4.70-6.10) M/mm3 Hgb 16.9 (14.0-18.0) g/dL Hct 49.4 (40.0-54.0) % MCV 90.1 (78.0-102.0) fL MCH 30.8 (27.0-31.0) pg MCHC 34.2 (32-36) g/dL RDW 12.1 (11.6-14.4) % Plt Count 290 (150-420) K/mm3 MPV 9.3 (8.7-11.0) fl Immature Gran % (Auto) 0.5 H (0.0-0.0) % Neut % (Auto) 50.7 (50.0-70.0) % Lymph % (Auto) 38.3 (18.0-42.0) % Fleming % (Auto) 7.5 (2.0-11.0) % Eos % (Auto) 2.0 (1.0-6.0) % Baso % (Auto) 1.0 (0.0-1.0) % Lymph # (Auto) 4.20 (1.10-4.50) K/mm3 Fleming # (Auto) 0.82 (0.10-0.90) K/mm3 Eos # (Auto) 0.22 (0.02-0.50) K/mm3 Baso # (Auto) 0.11 H (0.00-0.10) K/mm3 Abs Immat Gran (auto) 0.05 H (0.00-0.00) K/mm3 Absolute Neuts (auto) 5.58 (1.70-7.20) K/mm3 Absolute Nucleated RBC 0.00 (0.00-0.00) K/mm3 Nucleated RBC % 0.0 (0-0.0) % PT 10.5 (9.50-12.1) Seconds INR 1.0 APTT 30.9 H (23.9-30.70) Sec D-Dimer 0.65 H* (0.19-0.50) mg/L Sodium 136 (136-145) mmol/L Potassium 3.7 (3.5-5.1) mmol/L Chloride 100 (98-108) mmol/L Carbon Dioxide 29 (21-32) mmol/L Anion Gap 7 (4-12) mmol/L BUN 12 (7-18) mg/dL Creatinine 0.96 (0.70-1.30) mg/dL Estim Creat Clear Calc 116 ml/min Estimated GFR > 60 (59 - ) Glucose 106 H (70-99) mg/dL Calculated Osmolality 281 L (285-295) mOsm/kg Lactic Acid 0.6 (0.4-2.0) mmol/L Calcium 9.3 (8.5-10.1) mg/dL Magnesium 2.0 (1.8-2.4) mg/dL Total Bilirubin 0.6 (0.00-1.00) mg/dL AST 26 (15-37) U/L ALT 74 H (16-63) U/L Alkaline Phosphatase 100 (46-116) U/L Troponin I 5.3 4.5 (0.00-60.4) ng/L Total Protein 7.4 (6.4-8.2) g/dL Albumin 4.2 (3.4-5.0) g/dL Discharge Plan Discharge Clinical Impression: Pulmonary nodule Chest pain Qualifiers: Chest pain type: unspecified Qualified Code(s): R07.9 - Chest pain, unspecified Patient Disposition: Home, Self-Care Condition: Stable Instructions: Antibiotic Form, Chest Pain (ED), Pulmonary Nodules (ED) Patient Language: Serbian Prescriptions: No Action testosterone cypionate 200 mg/mL oil 200 mg IM WEEKLY Follow-up/Referrals: Dean Taylor MD [Primary Care Provider] - Time of Disposition: 22:03
[2024-08-12 19:47] LABS: Basophils Absolute Auto 0.11 K/mm3 (0.00-0.10); Eosinophils Absolute Auto 0.22 K/mm3 (0.02-0.50); Hematocrit 49.4 % (40.0-54.0); Hemoglobin 16.9 g/dL (14.0-18.0); Immature Granulocyte Absolute 0.05 K/mm3 (0.00-0.00); Immature Granulocyte Percent A 0.5 % (0.0-0.0); Lymphocytes Percent Auto 38.3 % (18.0-42.0); Mean Corpuscular HGB Conc 34.2 g/dL (32-36); Mean Corpuscular Hemoglobin 30.8 pg (27.0-31.0); Mean Corpuscular Volume 90.1 fL (78.0-102.0); Mean Platelet Volume 9.3 fl (8.7-11.0); Monocytes Absolute Auto 0.82 K/mm3 (0.10-0.90); Monocytes Percent Auto 7.5 % (2.0-11.0); Neutrophils Absolute Auto 5.58 K/mm3 (1.70-7.20); Neutrophils Percent Auto 50.7 % (50.0-70.0); Platelet Count Result 290 K/mm3 (150-420); Red Blood Count 5.48 M/mm3 (4.70-6.10); Red Cell Distribution Width 12.1 % (11.6-14.4)
[2024-08-12 19:55] LABS: Partial Thromboplastin Time 30.9 Sec (23.9-30.70); Prothrombin Time 10.5 Seconds (9.50-12.1)
[2024-08-12 19:58] LABS: Alanine Aminotransferase 74 U/L (16-63); Albumin Level 4.2 g/dL (3.4-5.0); Alkaline Phosphatase 100 U/L (46-116); Anion Gap 7 mmol/L (4-12); Aspartate Amino Transferase 26 U/L (15-37); Bilirubin,Total 0.6 mg/dL (0.00-1.00); Blood Urea Nitrogen 12 mg/dL (7-18); Calcium 9.3 mg/dL (8.5-10.1); Carbon Dioxide 29 mmol/L (21-32); Chloride 100 mmol/L (98-108); Estimated CRCL calculation 116 ml/min; Estimated Glomerular Filt Rate > 60; Glucose 106 mg/dL (70-99); Osmolality Calculated 281 mOsm/kg (285-295); Potassium 3.7 mmol/L (3.5-5.1); Sodium 136 mmol/L (136-145); Total Protein 7.4 g/dL (6.4-8.2); Troponin I 5.3 ng/L (0.00-60.4)
[2024-08-12 19:59] LABS: D Dimer 0.65 mg/L (0.19-0.50)
[2024-08-12 20:01] LABS: Lactic Acid Reflex 0.6 mmol/L (0.4-2.0)
[2024-08-12] MEDS: LACTATED RINGERS 1,000 ML 999 ML IV CONT (20:56)
[2024-08-12 21:59] LABS: Troponin I 4.5 ng/L (0.00-60.4)
== END 2024-08-12 22:30 | disposition home or self-care (01) ==
PROVIDERS: Emergency Provider Internal Medicine Critical Care Medicine; PCP Internal Medicine
DX: R91.1 Solitary pulmonary nodule (principal); R07.9 Chest pain, unspecified; Z87.891 Personal history of nicotine dependence
CPT/HCPCS: 36415; 71045; 71275; 74174; 80053; 83605; 83735; 84484; 85025; 85380; 85610; 85730; 93005; 96360; 99284; J7120; Q9967

== ENCOUNTER 2024-09-04 08:10 | Outpatient (CLI) | payer BC, SELFPAY ==
--- NOTE | ~2024-09-04 | XR_ITS ---
EXAMINATION: XR UGIAC w barium swallow DATE: 09/04/2024 08:57 INDICATION: Chest pain. TECHNIQUE: The patient drank thick barium, gas-producing crystals, and thin barium. Fluoroscopy of th e esophagus, stomach, and proximal small bowel was performed. Fluoroscopy exposure time was 0.7 minut es. The total number of images was 229. Total dose-area product was 2.599 Gy-cm^2. COMPARISON: CT 08/12/2024 FINDINGS: There is no mass or stricture of the esophagus. Esophageal motility is normal. There is no hiatal hernia. There was no gastroesophageal reflux with provocative maneuvers. The stomach and proxi mal small bowel show normal folding patterns. IMPRESSION: 1. Normal upper gastrointestinal series and esophagram. Reviewed, dictated and finalized at location A. SHAVER
== END 2024-09-04 08:11 | disposition home or self-care (01) ==
PROVIDERS: PCP Internal Medicine; Visit Provider Internal Medicine
DX: K21.9 Gastro-esophageal reflux disease without esophagitis (principal)
CPT/HCPCS: 74246

== ENCOUNTER 2024-09-29 09:38 | Outpatient (CLI) | payer BC, SELFPAY ==
--- NOTE | 2024-09-29 11:30 | NEURO_ITS ---
Impression: # Complains of numbness of hands. Not diabetic. ? # Subtle evolving Carpal Tunnel Syndrome. ? # No ulnar neuropathy. ? # Normal needle/EMG exam. ? Nerve Conduction Studies Anti Sensory Summary Table ?Stim Site NR Peak (ms) P-T Amp (?V) Site1 Site2 Delta-P (ms) Dist (cm) Anand (m/s) Left Median Anti Sensory (2-3nd Digit) Wrist ? 3.6 59.4 Wrist 2-3nd Digit 3.6 14.0 39 Wrist ? 3.3 33.5 Wrist 2-3nd Digit 3.6 14.0 39 Right Median Anti Sensory (2-3nd Digit) Wrist ? 3.3 41.9 Wrist 2-3nd Digit 3.3 14.0 42 Wrist ? 3.3 48.2 Wrist 2-3nd Digit 3.3 14.0 42 Left Radial Anti Sensory (Base 1st Digit) Wrist ? 1.8 34.3 Wrist Base 1st Digit 1.8 0.0 Right Radial Anti Sensory (Base 1st Digit) Wrist ? 2.2 26.4 Wrist Base 1st Digit 2.2 0.0 Left Ulnar Anti Sensory (5th Digit) Wrist ? 2.3 57.4 Wrist 5th Digit 2.3 14.0 61 Right Ulnar Anti Sensory (5th Digit) Wrist ? 2.2 30.1 Wrist 5th Digit 2.2 14.0 64 Motor Summary Table ?Stim Site NR Onset (ms) O-P Amp (mV) Site1 Site2 Delta-0 (ms) Dist (cm) Anand (m/s) Left Median Motor (Abd Poll Brev) Wrist ? 3.4 1.5 Elbow Wrist 4.6 27.0 59 Elbow ? 8.0 4.6 Right Median Motor (Abd Poll Brev) Wrist ? 3.4 3.3 Elbow Wrist 4.6 28.0 61 Elbow ? 8.0 3.7 Left Ulnar Motor (Abd Dig Minimi) Wrist ? 2.1 7.1 A Elbow Wrist 5.2 31.0 60 A Elbow ? 7.3 5.7 Right Ulnar Motor (Abd Dig Minimi) Wrist ? 2.2 4.2 A Elbow Wrist 5.1 31.0 61 A Elbow ? 7.3 2.9 F Wave Studies ?NR F-Lat (ms) L-R F-Lat (ms) Left Median (Mrkrs) (Abd Poll Brev) ? 27.29 1.23 Right Median (Mrkrs) (Abd Poll Brev) ? 28.52 1.23 Left Ulnar (Mrkrs) (Abd Dig Min) ? 27.80 0.18 Right Ulnar (Mrkrs) (Abd Dig Min) ? 27.98 0.18 EMG ?Side Muscle Nerve Root Ins Act Fibs Amp Dur Recrt Comment Right 1stDorInt Ulnar C8-T1 Nml Nml Nml Nml Nml Right Ext Indicis Radial (Post Int) C7-8 Nml Nml Nml Nml Nml Right Ext Digitorum Radial (Post Int) C7-8 Nml Nml Nml Nml Nml Right BrachioRad Radial C5-6 Nml Nml Nml Nml Nml Right PronatorTeres Median C6-7 Nml Nml Nml Nml Nml Right Abd Poll Brev Median C8-T1 Nml Nml Nml Nml Nml Right ABD Dig Min Ulnar C8-T1 Nml Nml Nml Nml Nml Left 1stDorInt Ulnar C8-T1 Nml Nml Nml Nml Nml Left Ext Indicis Radial (Post Int) C7-8 Nml Nml Nml Nml Nml Left Ext Digitorum Radial (Post Int) C7-8 Nml Nml Nml Nml Nml Left BrachioRad Radial C5-6 Nml Nml Nml Nml Nml Left PronatorTeres Median C6-7 Nml Nml Nml Nml Nml Left Abd Poll Brev Median C8-T1 Nml Nml Nml Nml Nml Left ABD Dig Min Ulnar C8-T1 Nml Nml Nml Nml Nml MTDD
== END 2024-09-29 09:39 | disposition home or self-care (01) ==
PROVIDERS: PCP Internal Medicine; Visit Provider Internal Medicine
DX: R20.2 Paresthesia of skin (principal); M54.12 Radiculopathy, cervical region
CPT/HCPCS: 95886; 95911

== ENCOUNTER 2024-11-03 13:53 | Emergency (ER) | payer BC, SELFPAY ==
[2024-11-03 13:55] VITALS: BP 139/96; PULSE 85; RESP 18; TEMP 37.2; O2SAT 100
--- NOTE | 2024-11-03 13:59 | ED.URI ---
HPI - URI/Sore Throat General Chief Complaint: Upper Respiratory Infection Stated Complaint: congestion, fever, sore throat Time Seen by Provider: 11/03/24 13:58 Source: patient Mode of arrival: ambulatory Limitations: no limitations History of Present Illness HPI Narrative: patient is a 39-year-old male with a cough and congestion for the past 3 days. Patient has associated sore throat. MD elicited complaint: cough, rhinorrhea and nasal congestion Pertinent past history: other ( Negative) Onset (ago): day(s) (3) Consistency: constant Severity: mild Pain scale (0-10): 2 Description of mucous: clear Able to tolerate fluids by mouth: Yes Exacerbating factors: nothing Relieving factors: nothing Context: sick contacts Associated symptoms: denies other symptoms, headache, rhinorrhea, nasal congestion, sore throat and cough Treatments prior to arrival: none Related Data Home Medications ?Medication ?Instructions ?Recorded ?Confirmed ?Last Taken ?Type testosterone cypionate 200 mg/mL 200 mg IM WEEKLY 08/12/24 11/02/24 Unknown History intramuscular oil Allergies Allergy/AdvReac Type Severity Reaction Status Date / Time levofloxacin Allergy Unknown itch Verified 11/03/24 14:07 Review of Systems Review of Systems: All systems reviewed & are unremarkable except as noted in HPI and below Constitutional: Constitutional: Reports no additional constitutional complaints Eyes: Eyes: Reports no additional eye complaints ENT: Reports system reviewed and no additional complaints, except as documented Cardiovascular: Cardiovascular: Reports no additional cardiovascular complaints Respiratory: Respiratory: Reports no additional respiratory complaints Gastrointestinal: Gastrointestinal: Reports no additional gastrointestinal complaints Genitourinary: Genitourinary: Reports no additional male genitourinary complaints Musculoskeletal: Musculoskeletal: Reports no additional musculoskeletal complaints Integumentary/Breasts: Skin/Breast: Reports system reviewed and no additional complaints, except as docu Neurologic: Reports system reviewed and no additional complaints, except as documented Psychiatric: Psychiatric: Reports no additional psychiatric complaints Endocrine: Endocrine: Reports no additional endocrine complaints Hematologic/Lymphatic: Hematologic/Lymphatic: Reports no additional hematologic/lymphatic complaints Allergic/Immunologic: Allergic/Immunologic: Reports no additional allergic/immunologic complaints PMFSH Past Medical History Medical History Angiolipoma No significant medical problems Surgical History Surgical History History of appendectomy Family History Family History Mother Colon cancer Other Hypertension Social History Social History Smoking status: Former smoker Smoking end date: 09/30/12 Alcohol intake: never Substance use: never Living arrangements: with family Gender identity (if verbalized by the patient): Male Sexual Orientation (if Verbalized by the Patient): Straight or Heterosexual Exam Const: General: ill appearing Nutritional Appearance: well nourished Orientation/consciousness: patient oriented x3 Limitations: no limitations HENMT: Head: normal to inspection Ears: external ears normal Face/Nose/Sinus: Normal external nose present Eyes: Conjunctivae: conjunctivae normal Pupils: Equal, round and reactive pupils present EOM: EOMs intact bilaterally Neck: Neck: normal visual inspection Chest: Chest palpation & inspection: normal inspection of the chest Resp: Effort & Inspection: normal respiratory effort and not labored Auscultation: clear to auscultation bilaterally and no crackles Cardio: Rate: regular rate Rhythm: regular rhythm Heart sounds: no murmurs GI: Inspection: non-distended GI Palp: Yes Soft to palpation and No Tenderness to palpation present (GI) Auscultation: normal bowel sounds : General: Yes bladder normal to palpation Back/Spine/Pelvis: Back: no CVA tenderness Skin: General skin exam: normal color Rashes: no rashes Wounds: no wounds Neuro: General: patient oriented x3 Cranial nerves: Yes Nystagmus not present Speech: normal speech Extrem: General: normal to inspection Psych: Mental Status: mental status grossly normal Affect: normal affect Attitude: cooperative Course Vital Signs Vital signs: Vital Signs Temperature 37.2 C 11/03/24 13:55 Pulse Rate 85 11/03/24 13:55 Respiratory Rate 18 11/03/24 13:55 Blood Pressure 139/96 H 11/03/24 13:55 Pulse Oximetry 100 11/03/24 13:55 Oxygen Delivery Room Air 11/03/24 13:55 Temperature 36.7 C 11/03/24 15:05 Pulse Rate 72 11/03/24 15:05 Respiratory Rate 20 11/03/24 15:05 Blood Pressure 137/96 H 11/03/24 15:05 Pulse Oximetry 100 11/03/24 15:05 Oxygen Delivery Room Air 11/03/24 15:05 MDM - URI/Sore Throat MDM Narrative Medical decision making narrative: patient is a 39-year-old male with viral type syndrome. We will do a COVID viral panel. Also check strep. Lab Data Attestation: I reviewed the patient's lab results. Labs: Lab Results 11/03/24 Range/Units 13:59 Influenza A (RT-PCR) Positive A (Negative) Influenza B (RT-PCR) Negative (Negative) RSV (RT-PCR) Negative (Negative) SARS-CoV-2 RNA (RT-PCR) Negative (Negative) Group A Strep (PCR) Not detected (Negative) Discharge Plan Discharge Clinical Impression: Influenza A Patient Disposition: Home, Self-Care Condition: Stable Instructions: Influenza (ED) Patient Language: Syriac Prescriptions: No Action testosterone cypionate 200 mg/mL oil 200 mg IM WEEKLY Follow-up/Referrals: Dean Taylor MD [Primary Care Provider] - Stand Alone Forms: Work/School Release IP Time of Disposition: 15:20
--- OUTSIDE RECORDS SUMMARY | 2024-11-03 14:06 | XMS_ITS | Clinical Summary ---
Author Organization [facility] Address [address] [place] [address]. [place], [place] [id number] [place] [id number] Care Team Providers Care Ophthalmology Technician Name Role Phone None, Provider MD Primary Care Provider Unavaila ble Allergies Active Allergy Reactions Criticality Noted Date Comments Levofloxacin Unknown,Itching 11/09/2016 Medications MONTELUKAST 10 MG tabletIndication s:Allergic rhinitis TAKE 1 TABLET(10 MG) BY MOUTH EVERY NIGHT AT BEDTIME 90 tablet 03/25/2020 Active ibuprofen 200 MG tablet Take 200 mg by mouth every 6 (six) hours as needed for Pain. Active naproxen 500 MG tabletIndication s:Acute pain of right knee Take 1 tablet (500 mg total) by mouth 2 (two) times daily with meals. 20 tablet 06/01/2020 Active Phentermine HCl 15 MG CapIndications:C lass 1 obesity without serious comorbidity with body mass index (BMI) of 33.0 to 33.9 in adult, unspecified obesity type Take 15 mg by mouth daily. 30 capsule 1 09/14/2020 Active azithromycin 250 MG tabletIndication s:Sinusitis, unspecified chronicity, unspecified location Take 2 tablets by mouth on day one then 1 daily for four days. 6 tablet 02/21/2021 Active methylPREDNISolo ne, MARYLU, 4 MG tabletIndication s:Sinusitis, unspecified chronicity, unspecified location,Wheezin g 6 TABLETS ON DAY ONE, 5 TABLETS DAY TWO, 4 TABLETS DAY THREE, 3 TABLETS DAY FOUR, 2 TABLETS DAY FIVE, AND 1 TABLET DAY SIX 1 each 02/21/2021 Active ALBUTEROL SULFATE HFA 108 (90 Base) MCG/ACT inhalerIndicatio ns:Sinusitis, unspecified chronicity, unspecified location,Wheezin g INHALE 2 PUFFS INTO THE LUNGS EVERY 6 HOURS NEEDED FOR WHEEZING. 18 g 03/13/2021 Active Active Problems Problem Noted Date Diagnosed Date Tear of right glenoid labrum, initial encounter 05/16/2020 Right shoulder pain, unspecified chronicity 04/30 BMI 33.0-33.9,adult 11/18/2019 Diarrhea of presumed infectious origin 0 Dermatitis 05/13/2019 Fatigue 11/09/2016 Multiple lipomas 11/09/2016 Obstructive sleep apnea hypopnea, severe 017 Snoring 11/09/2016 Resolved Problems Problem Noted Date Diagnosed Date Resolved Date Postoperative examination 12/07/2019 Acute non-recurrent maxillary sinusitis 10/20/2018 05/13/2019 Immunizations Name Administration Dates Next Due Dtp 11/22/1987, 7,06/17/1987, 987 Hepatitis B Pediatric 01/03/2001,07/19/2000,05/01 Influenza (Generic) 06/29/2020,08/09/2019,2017 Influenza Adult (Generic) 06/29/2020,08/09/2019, 08/26/2018 MMR 06/30/1993,08/15/1987 MODERNA COVID-19 (12+) MRNA, LNP-S, PF, 100 MCG/ 0.5 ML DOSE 01/17/2021,12/20/2020 Opv 11/22/1987, 7,06/17/1987, 987 Td 07/19/2000 Family History Medical History Relation Comments Cancer Mother colon Relation Status Comments Father Alive Mother Alive Social History Tobacco Use Types Packs/Day Years Used Date Smoking Tobacco: Former Cigarettes 1 15 1 - 2013 Smokeless Tobacco: Never Tobacco Cessation:Counseling Given: No Alcohol Use Standard Drinks/Week Comments Yes 0 (1 standard drink = 0.6 oz pur e alcohol) occ PHQ-2 Answer Date Recorded PHQ-2 Score - If the patient scores above 3, please move on to questions 3-9 0 05/16/2020 Education Answer Date Recorded What is the highest level of school you have completed or the highest degree you have received? 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 Not on file Not on file Last Filed Vital Signs Vital Sign Reading Time Taken Comments Blood Pressure 110/70 09/14/2020 3:54 PM TONGUE STITCHER Pulse 73 09/14/2020 3:54 PM TONGUE STITCHER Temperature 36.6 ??C (97.8 ??F) 02/21/2021 1:28 PM CD T Respiratory Rate 16 09/14/2020 3:54 PM TONGUE STITCHER Oxygen Saturation 97% 09/14/2020 3:54 PM TONGUE STITCHER Inhaled Oxygen Concentration - - Weight 106.6 kg (235 lb) 02/21/2021 1:28 PM CDT Height 177.8 cm (5' 10 ) 02/21/2021 1:28 PM CDT Body Mass Index 33.72 02/21/2021 1:28 PM CDT Plan of Treatment Health Maintenance Due Date Last Done Comments Annual Physical 1989 PHQ-2 (Physician [place]lim Ira) 1998 DTaP, Tdap and Td Vaccines (2 - Tdap) 07/20/2000 07/19/2000, 11/22/1987, 08/15/1987, Additional history exists Hepatitis C 2004 COVID-19 Vaccine ( season) 2024 01/17/2021, 12/20/2020 Influenza Adult (#1) 2024 06/29/2020, 06/29/2020, 08/09/2019, Additional history exists PHQ-2 (Physician [place]lim [place]) 09/30/2024 Hepatitis B Vaccines Completed 01/03/2001, 07/19/2000, 05/21/2000 HPV Vaccines Aged Out No longer eligi ble based on patient's age to complete this topic Meningococcal B Vaccine Aged Out No l onger eligible based on patient's age to complete this topic Meningococcal Vaccine Aged Out No keny darion eligible based on patient's age to complete this topic Pneumococcal Vaccine: Pediatrics (0 to 5 Years) and At-Risk Patients (6 to 64 Years) Aged Out No longer eligible based on patient's age to complete this topic RSV Immunizations Under 20 Months Aged Out No longer eligible based on patient's age to complete this topic [place] [address] Care Teams Ophthalmology Technician Relationship Specialty Start Date End Date None, Provider, PCP - General UNKNOWN PHYSICIAN SPECIALTY 11/25/23
--- NOTE | 2024-11-03 14:12 | PC.NURSE ---
covid culture sent to lab
--- OUTSIDE RECORDS SUMMARY | 2024-11-03 14:32 | XMS_ITS | Clinical Summary ---
Author Organization [facility] Address [address] [place] [address]. [place], [place] [id number] [place] [address] Care Team Providers Care Director Of Exhibits Name Role Phone None, Provider MD Primary [...] Comments Blood Pressure 110/70 09/14/2020 3:54 PM HAND PLUG SHAPER Pulse 73 09/14/2020 3:54 PM HAND PLUG SHAPER Temperature 36.6 ??C (97.8 ??F) 02/21/2021 1:28 PM CD T Respiratory Rate 16 09/14/2020 3:54 PM HAND PLUG SHAPER Oxygen Saturation 97% 09/14/2020 3:54 PM HAND PLUG SHAPER Inhaled Oxygen Concentration - - Weight 106.6 kg (235 lb) 02/21/2021 1:28 PM CDT Height 177.8 cm (5' 10 ) 02/21/2021 1:28 PM CDT Body Mass Index 33.72 02/21/2021 1:28 PM CDT Plan of Treatment Health Maintenance Due Date Last Done Comments Annual Physical 1989 PHQ-2 (Physician [place]) 1998 DTaP, Tdap and Td Vaccines (2 - Tdap) 07/20/2000 07/19/2000, 11/22/1987, 08/15/1987, Additional history exists Hepatitis C 2004 COVID-19 Vaccine ( season) 2024 01/17/2021, 12/20/2020 Influenza Adult (#1) 2024 06/29/2020, 06/29/2020, 08/09/2019, Additional history exists PHQ-2 (Physician [place]) 09/30/2024 Hepatitis B Vaccines Completed 01/03/2001, 07/19/2000, [...] patient's age to complete this topic [place] [address] [address] [address] Care Teams Director Of Exhibits Relationship Specialty Start Date End Date None, Provider, PCP - General UNKNOWN PHYSICIAN SPECIALTY 11/25/23
[2024-11-03 14:45] LABS: Strep Group A RT-PCR NOT DETECTED (Negative)
[2024-11-03 14:49] LABS: Influenza A QL RT-PCR Positive (Negative); Influenza B QL RT-PCR Negative (Negative); RSV RNA, RT-PCR Negative (Negative); SARS-CoV-2 RNA PCR Negative (Negative)
[2024-11-03 15:05] VITALS: BP 137/96; PULSE 72; RESP 20; TEMP 36.7; O2SAT 100
[2024-11-03 15:30] VITALS: BP 131/88; PULSE 92; RESP 18; TEMP 36.8; O2SAT 100
== END 2024-11-03 15:30 | disposition home or self-care (01) ==
PROVIDERS: Emergency Provider Emergency Medicine; PCP Internal Medicine
DX: J10.1 Influenza due to other identified influenza virus with other respiratory manifestations (principal); Z20.822 Contact with and (suspected) exposure to COVID-19; Z87.891 Personal history of nicotine dependence
CPT/HCPCS: 87637; 87651; 99283

== ENCOUNTER 2024-12-04 10:00 | Outpatient (CLI) | payer BC, SELFPAY ==
--- NOTE | ~2024-12-04 | CT_ITS ---
EXAMINATION:CT diagnostic chest wo con DATE: 12/04/2024 10:17 INDICATION: Solitary pulmonary nodule. TECHNIQUE: Computed tomography (CT) of the chest was performed without intravenous contrast. Automate d exposure control and iterative reconstruction technique were employed. The dose-length product (DLP ) was 204.84 mGy-cm. COMPARISON: Chest CT 08/12/2024 FINDINGS: There is a 7 mm nodule in right middle lobe. There is a 4 mm nodule at left major fissure, likely benign. No pleural effusion. The heart size is normal. No pericardial effusion. There is mild thoracic spondylosis. IMPRESSION: 1. 7 mm pulmonary nodule, stable from 08/12/2024, probably benign. Noncontrast low-dose chest CT is r ecommended in 6-12 months. Reviewed, dictated and finalized at location A. DRYER IMPRESSION: 1. 7 mm pulmonary nodule, stable from 08/12/2024, probably benign. Noncontrast low-dose chest CT is recommended in 6-12 months.
--- OUTSIDE RECORDS SUMMARY | 2024-12-04 10:44 | XMS_ITS | Clinical Summary ---
Author Organization [facility] Address [address] [place] [address] Care Team Providers Care Litigation Services Manager Name Role Phone None, Provider MD Primary [...] Smoking Tobacco: Former Cigarettes 1 15 1 999 - 2013 Smokeless Tobacco: Never Tobacco Cessation:Counseling [...] Comments Blood Pressure 110/70 09/14/2020 3:54 PM TICKETING CLERK Pulse 73 09/14/2020 3:54 PM TICKETING CLERK Temperature 36.6 C (97.8 F) 02/21/2021 1:28 PM CDT Respiratory Rate 16 09/14/2020 3:54 PM TICKETING CLERK Oxygen Saturation 97% 09/14/2020 3:54 PM TICKETING CLERK Inhaled Oxygen Concentration - - Weight 106.6 kg (235 lb) 02/21/2021 1:28 PM CDT Height 177.8 cm (5' 10 ) 02/21/2021 1:28 PM CDT Body Mass Index 33.72 02/21/2021 1:28 PM CDT Plan of Treatment Health Maintenance Due Date Last Done Comments Annual Physical 1989 PHQ-2 (Physician [place]) 1998 DTaP, Tdap and Td Vaccines (2 - Tdap) 07/20/2000 07/19/2000, 11/22/1987, 08/15/1987, Additional history exists Hepatitis C 2004 COVID-19 Vaccine ( season) 2024 01/17/2021, 12/20/2020 Influenza Adult (#1) 2024 06/29/2020, 06/29/2020, 08/09/2019, Additional history exists PHQ-2 (Physician [place]) 09/30/2024 Hepatitis B Vaccines Completed 01/03/2001, 07/19/2000, [...] patient's age to complete this topic Insurance [facility] Care Teams Litigation Services Manager Relationship Specialty Start Date End Date None, Provider, PCP - General UNKNOWN PHYSICIAN SPECIALTY 11/25/23
== END 2024-12-04 10:01 | disposition home or self-care (01) ==
PROVIDERS: PCP Internal Medicine; Visit Provider Physician Assistant
DX: R91.1 Solitary pulmonary nodule (principal)
CPT/HCPCS: 71250

== ENCOUNTER 2025-01-15 23:48 | Emergency (ER) | payer BC, SELFPAY ==
--- NOTE | ~2025-01-15 | XR_ITS ---
XR ankle LT min 3V Ordering provider: Roxanne Benedict MD History: . SWELLING AND PAIN LEFT ANKLE AFTER FALL . Comparison: None. FINDINGS: BONES: Small bony fragment seen near to the medial malleolus. JOINT SPACES: The ankle mortise is normal. SOFT TISSUES: soft tissue swelling over the lateral malleolus. Ossification of the insertion of the tendo Achilles. IMPRESSION: Chip fracture near to the medial malleolus. Soft tissue swelling over the lateral malleolus. Reviewed, dictated and finalized at location A.
[2025-01-15 23:49] VITALS: BP 137/73; PULSE 92; RESP 18; TEMP 36.3; O2SAT 97
--- OUTSIDE RECORDS SUMMARY | 2025-01-15 23:51 | XMS_ITS | Clinical Summary ---
Author Organization [facility] Address [address] [place] [address] Care Team Providers Care Hair And Makeup Designer Name Role Phone None, Provider MD Primary [...] Acute non-recurrent maxillary sinusitis 10/20/2018 05/13/2019 Immunizations Immunization Administration Dates Next Due Dtp 11/22/1987, 7,06/17/1987,1986 Hepatitis B Pediatric 01/03/2001,07/19/2000,05/01 Influenza (Generic) 06/29/2020,08/09/2019,2017 Influenza Adult (Generic) 06/29/2020,08/09/2019, 08/26/2018 MMR 06/30/1993,08/15/1987 MODERNA COVID-19 (12+) MRNA, LNP-S, PF, 100 MCG/ 0.5 ML DOSE 01/17/2021,12/20/2020 Opv 11/22/1987, 7,06/17/1987,1986 Td 07/19/2000 Family History Medical History Relation [...] Comments Blood Pressure 110/70 09/14/2020 3:54 PM ENTERPRISE INFRASTRUCTURE ARCHITECT Pulse 73 09/14/2020 3:54 PM ENTERPRISE INFRASTRUCTURE ARCHITECT Temperature 36.6 C (97.8 F) 02/21/2021 1:28 PM CDT Respiratory Rate 16 09/14/2020 3:54 PM ENTERPRISE INFRASTRUCTURE ARCHITECT Oxygen Saturation 97% 09/14/2020 3:54 PM ENTERPRISE INFRASTRUCTURE ARCHITECT Inhaled Oxygen Concentration - - Weight 106.6 kg (235 lb) 02/21/2021 1:28 PM CDT Height 177.8 cm (5' 10 ) 02/21/2021 1:28 PM CDT Body Mass Index 33.72 02/21/2021 1:28 PM CDT Plan of Treatment Health Maintenance Due Date Last Done Comments Annual Physical 1989 DTaP, Tdap and Td Vaccines (2 - Tdap) 07/20/2000 07/19/2000, 11/22/1987, 08/15/1987, Additional history exists Hepatitis C 2004 COVID-19 Vaccine ( season) 2024 01/17/2021, 12/20/2020 Hepatitis B Vaccines Completed 01/03/2001, 07/19/2000, 05/21/2000 [...] 5 Years) and At-Risk Patients (6 to 49 Years) Aged Out No longer eligible based on patient's age to complete this topic RSV Immunizations Under 20 Months Aged Out No longer eligible based on patient's age to complete this topic Insurance [place] [address] [address] Care Teams Hair And Makeup Designer Relationship Specialty Start Date End Date None, Provider, PCP - General UNKNOWN PHYSICIAN SPECIALTY 11/25/23
--- NOTE | 2025-01-16 00:01 | ED.LOWEXIN ---
HPI - Extremity Injury (Lower) General Chief Complaint: Extremity Injury, Lower Stated Complaint: ankle injury Time Seen by Provider: 01/15/25 23:52 Source: patient Mode of arrival: ambulatory Limitations: no limitations History of Present Illness HPI Narrative: 39 years old white male came to the ED by private car from home complaining of left ankle pain, twist while playing softball. He denies other injuries. Prior to arrival. Related Data Home Medications ?Medication ?Instructions ?Recorded ?Confirmed ?Last Taken ?Type testosterone cypionate 200 mg/mL 200 mg IM WEEKLY 08/12/24 01/15/25 Unknown History intramuscular oil Allergies Allergy/AdvReac Type Severity Reaction Status Date / Time levofloxacin Allergy Unknown itch Verified 01/15/25 23:55 Review of Systems Review of Systems: All systems reviewed & are unremarkable except as noted in HPI and below PMFSH Past Medical History Medical History Angiolipoma No significant medical problems Surgical History Surgical History History of appendectomy Family History Family History Mother Colon cancer Other Hypertension Social History Social History Smoking status: Former smoker Smoking end date: 09/30/12 Alcohol intake: never Substance use: never Living arrangements: with family Gender identity (if verbalized by the patient): Male Sexual Orientation (if Verbalized by the Patient): Straight or Heterosexual Exam Narrative: General appearance: Well-developed, well-nourished Skin: Normal color Head: Normocephalic, nontraumatic Eyes: Clear conjunctiva ENT: Oropharynx normal, ears normal, nose normal Neck: Supple, nontender Chest and respiratory: Airway patent, no respiratory distress, no accessory muscle use Heart: Regular rate/rhythm Abdomen: Soft, nontender, no organomegaly, quiet bowel sounds Vascular: Normal peripheral pulses, normal capillary refill. Musculoskeletal: Left ankle showing swelling and diffuse tenderness laterally, slight limited range of motion Neurologic: Alert and oriented ?3, MECHATRONICS TECHNOLOGIST is normal as tested, no gross motor deficit Course Vital Signs Vital signs: Vital Signs Temperature 36.3 C L 01/15/25 23:49 Pulse Rate 92 01/15/25 23:49 Respiratory Rate 18 01/15/25 23:49 Blood Pressure 137/73 01/15/25 23:49 Pulse Oximetry 97 01/15/25 23:49 Oxygen Delivery Room Air 01/15/25 23:49 Temperature 36.3 C L 01/15/25 23:49 Pulse Rate 92 01/15/25 23:49 Respiratory Rate 18 01/15/25 23:49 Blood Pressure 137/73 01/15/25 23:49 Pulse Oximetry 97 01/15/25 23:49 Oxygen Delivery Room Air 01/15/25 23:49 Critical Care Time Critical Care Time Critical Care Time: No Discharge Plan Discharge Clinical Impression: Avulsion fracture of left ankle Patient Disposition: Home Condition: Stable Instructions: Splint Care (ED), Avulsion Fracture (ED) Additional Instructions: Return if symptoms are worsening , call orthopedic for appointment, take Tylenol, ibuprofen as as needed for aches and pain, continue home medications. Keep foot elevated Crutches Ice pack 20 minutes/hour for the next 24 hours Patient Language: Uruguayan Prescriptions: No Action testosterone cypionate 200 mg/mL oil 200 mg IM WEEKLY Follow-up/Referrals: Dean Taylor MD [Primary Care Provider] - Williams Medina MD [Physician] - 01/18/25
== END 2025-01-16 00:22 | disposition home or self-care (01) ==
PROVIDERS: Emergency Provider Emergency Medicine; PCP Internal Medicine
DX: S82.892A Other fracture of left lower leg, initial encounter for closed fracture (principal); Z87.891 Personal history of nicotine dependence; X50.0XXA Overexertion from strenuous movement or load, initial encounter; Y93.64 Activity, baseball
CPT/HCPCS: 29515; 73610; 99284; L4350